=== PATIENT | male | born 1955 | race Caucasian/White ===

== ENCOUNTER 2021-07-05 00:23 | Day surgery (SDC) | payer BC, SELFPAY ==
[2021-06-19 10:39] VITALS: BMI 24.8
[2021-07-05 07:46] VITALS: BP 144/81; PULSE 102; RESP 20; TEMP 37.3; O2SAT 96
[2021-07-05] MEDS: LACTATED RINGERS 1,000 ML 150 ML IV CONT (07:48)
--- NOTE | 2021-07-05 08:26 | WPDGICN ---
Assessment and Plan Assessment and plan (1) History of colon polyps: Code(s): Z86.010 - Personal history of colonic polyps Status: Inactive Assessment and Plan: Patient has history of adenomatous colon polyp removed from the colon 2015. Plan is for surveillance colonoscopy at this time. Further recommendations will be given after endoscopy. High-fiber diet suggested. GI Consult Note Consult date/time: 07/05/21 08:26 HPI: Alon Godwin is a 65 year old male Presents for screening colonoscopy. Patient was found to have a colon polyp at last colonoscopy. Two thousand sixteen. Patient reports current weight appetite bowel movements are normal. He denies abdominal pain. He has had no bleeding. Family history is noncontributory. Review of Systems Review of Systems: All systems reviewed & are unremarkable except as noted in HPI and below [facility] Past Medical History Medical History (Updated 07/05/21 @ 08:28 by Jayden Gann MD) Chronic back pain Essential (primary) hypertension (~1999) History of colon polyps Lumbosacral radiculopathy due to degenerative joint disease of spine (~1979) Other hyperlipidemia (~1999) Type 2 diabetes mellitus without complications (~2017) Surgical History Surgical History History of appendectomy (~1976) History of skin surgery (~2018) [place] teeth extracted (~1973) Family History Family History Father Family history of diabetes mellitus in first degree relative Family history of coronary artery disease Mother Family history of malignant neoplasm of breast in first degree relative Social History Social History Smoking packs per day: 0.5 Smoking cigarettes per day: 10.0 Years smoked: 45 Smoking pack-years: 22.50 Smoking status: Current every day smoker Tobacco type: cigarettes Second hand tobacco smoke exposure: No Additional smoking assessment comments: consumes 10 or less cigarettes daily Alcohol intake: current Alcohol use details: consumes 1 beer socially Substance use: never Substance use type: marijuana Other substance usage details: every once in awhile to help pain or sleep. Living arrangements: alone Additional occupation/education comments: [employer] Gender identity (if verbalized by the patient): Male Spiritual care concerns: No Meds Home Medications and Allergies Home Medications Medication Instructions Recorded Confirmed Type multivitamin 1 tablet PO DAILY 08/02/19 07/05/21 History psyllium husk 0.4 gram capsule 0.4 gm PO DAILY 05/11/20 07/05/21 History pravastatin 20 mg tablet 20 mg PO DAILY tablet 05/14/21 07/05/21 History valsartan 160 1 tablet PO DAILY tablet 05/14/21 07/05/21 History mg-hydrochlorothiazide 12.5 mg tablet Allergies Allergy/AdvReac Type Severity Reaction Status Date / Time No Known Allergies Allergy Verified 07/05/21 07:44 Vital Signs Vital Signs - 24 hr 07/05/21 07:46 Temperature 99.2 F Pulse Rate 102 H Respiratory Rate 20 Blood Pressure 144/81 H Pulse Oximetry 96 Exam Narrative: Physical exam reveals patient to be alert. Vital signs stable. HEENT exam is unremarkable. Patient is anicteric. Lungs are clear to auscultation and percussion. Heart is without murmur or extra sounds. Abdominal exam bowel sounds are present soft nontender with no organomegaly. Digital external rectal exam is normal.
[2021-07-05 09:43] VITALS: BP 120/77; PULSE 90; RESP 20; O2SAT 97
[2021-07-05 09:53] VITALS: BP 130/77; PULSE 80; RESP 18; O2SAT 100
[2021-07-05 10:03] VITALS: BP 126/87; PULSE 86; RESP 17; O2SAT 100
== END 2021-07-05 10:20 | disposition home or self-care (01) ==
PROVIDERS: PCP Family Medicine; Visit Provider Internal Medicine Gastroenterology
PROC: 0DJD8ZZ Inspection of Lower Intestinal Tract, Via Natural or Artificial Opening Endoscopic (ICD-10-PCS; CPT 45378; principal; 2021-07-05 09:00)
DX: Z12.11 Encounter for screening for malignant neoplasm of colon (principal); K64.8 Other hemorrhoids; K57.30 Diverticulosis of large intestine without perforation or abscess without bleeding; Z86.010 Personal history of colon polyps; I10 Essential (primary) hypertension; E78.49 Other hyperlipidemia; E11.9 Type 2 diabetes mellitus without complications; F17.210 Nicotine dependence, cigarettes, uncomplicated; F12.90 Cannabis use, unspecified, uncomplicated
CPT/HCPCS: 45378; J2704; J7120

== ENCOUNTER → 2022-06-27 10:58 | Outpatient (CLI) | payer BC, SELFPAY ==
--- NOTE | ~2022-06-27 | CT_ITS ---
EXAMINATION: CT lung screening DATE: 06/27/2022 11:15 INDICATION: No history of tobacco dependence. Lung cancer screening. TECHNIQUE: Computed tomography (CT) of the chest was performed without intravenous contrast. The dose -length product was 136.23 mGy-cm. Automated exposure control and iterative reconstruction technique were employed. COMPARISON: CT dated 09/24/2019 FINDINGS: Heart size normal. No significant pleural or pericardial effusion. No thoracic lymph node e nlargement. Mild atherosclerosis of the aorta and coronary arteries. Heart size normal. The upper abd omen is unremarkable. Stable 3 mm right lower lobe nodule. There is a 3 mm left lower lobe nodule, no t definitely seen on prior examination. No peripheral consolidation. No endobronchial lesions. No pne umothorax. Mild thoracic spondylosis. IMPRESSION: 1. Lung-RADS category 3: Probably benign. Further evaluation is recommended with noncontrast low-dose chest CT in 6 months. Reviewed, dictated and finalized at location A. IMPRESSION: 1. Lung-RADS category 3: Probably benign. Further evaluation is recommended wit h noncontrast low-dose chest CT in 6 months.
== END ==
PROVIDERS: PCP Family Medicine; Visit Provider Nurse Practitioner
DX: Z12.2 Encounter for screening for malignant neoplasm of respiratory organs (principal); F17.210 Nicotine dependence, cigarettes, uncomplicated
CPT/HCPCS: 71271

== ENCOUNTER → 2023-01-07 10:50 | Outpatient (CLI) | payer BC, SELFPAY ==
--- NOTE | ~2023-01-07 | CT_ITS ---
EXAMINATION: CT diagnostic chest wo con DATE: 01/07/2023 11:06 INDICATION: Pulmonary nodules TECHNIQUE: Computed tomography (CT) of the chest was performed without intravenous contrast. The dose -length product was 167.18 mGy-cm. Automated exposure control and iterative reconstruction technique were employed. COMPARISON: CT dated 06/27/2022 FINDINGS: Heart size is normal. No significant pleural or pericardial effusion. No thoracic lymphaden opathy. There is atherosclerosis of the aorta and coronary arteries. Stable 3 mm right lower lobe nod ule, image 81. There is emphysema. There is a 6 2 mm left lower lobe nodule unchanged. No endobronchi al lesions. No pneumothorax. No focal airspace consolidation. IMPRESSION: 1. Lung-RADS category 2: Benign appearance or behavior. Continue annual screening with noncontrast lo w-dose chest CT in 12 months. Reviewed, dictated and finalized at location A. IMPRESSION: 1. Lung-RADS category 2: Benign appearance or behavior. Continue annual screeni ng with noncontrast low-dose chest CT in 12 months.
== END ==
PROVIDERS: PCP Family Medicine; Visit Provider Nurse Practitioner
DX: R91.8 Other nonspecific abnormal finding of lung field (principal)
CPT/HCPCS: 71250

== ENCOUNTER 2025-01-06 09:57 | Outpatient (CLI) | payer BC, SELFPAY ==
--- NOTE | ~2025-01-06 | US_ITS ---
Thyroid ultrasound. Clinical History: Thyroid nodule Findings: Real-time sonography of the thyroid gland was performed. The right lobe measures 4.7 x 2.1 x 2.0 cm. The left lobe measures 4.0 x 2.1 x 1.7 cm. The isthmus is 4 mm in AP diameter. There is a 7 mm probable cystic nodule at the left lower pole. There is a 6 mm probable spongiform no dule at the left upper pole. There are several small cystic and/or spongiform nodules in the right lo be, largest measuring 6 mm in diameter. There is an 8 mm heterogeneous nodule in the right upper pole . Impression: Subcentimeter nodules in the thyroid gland, as above. Largest nodule at the right upper pole measures 8 mm. Given size and imaging characteristics, no further definite follow-up is required for the obse rved nodules. Reviewed, dictated and finalized at [facility]. Impression: Subcentimeter nodules in the thyroid gland, as above. Largest nodule at the rig ht upper pole measures 8 mm. Given size and imaging characteristics, no further definite follow-up is required for the observed nodules.
--- NOTE | ~2025-01-06 | CT_ITS ---
CT Scan of the Chest without Contrast: Clinical Indication: Lung cancer screening, nicotine dependence Technique: Contiguous sections were acquired throughout the chest without intravenous contrast. Dose reduction technique was used on this scan by utilizing automated exposure control and iterative recon struction technique. The dose-length product (DLP) was 126.41 mGy-cm. COMPARISON: 01/07/2023 Findings: There is no evidence of any significant mediastinal, hilar or axillary lymphadenopathy. Coronary iris ry calcium cages are present. There is no evidence of pleural or pericardial effusion. The lungs are clear. No pulmonary nodules or infiltrates are noted. Images through the upper abdomen reveal no abnormalities. Impression: Lung RADS 1: Negative. 12 month follow-up screening CT advised. Reviewed, dictated and finalized at location . Impression: Lung RADS 1: Negative. 12 month follow-up screening CT advised.
== END 2025-01-06 09:58 | disposition home or self-care (01) ==
LOC: MICIMG 09:58
PROVIDERS: PCP Family Medicine; Visit Provider Family Medicine
DX: E04.2 Nontoxic multinodular goiter (principal); Z12.2 Encounter for screening for malignant neoplasm of respiratory organs; Z87.891 Personal history of nicotine dependence
CPT/HCPCS: 71271; 76536